=== PATIENT | female | born 1930 | race Caucasian/White ===

== ENCOUNTER 2019-02-05 03:49 | Observation (INO) | payer MEDICARE ==
[~2019-02-05] VITALS: Ht 167.6 cm; Wt 105.0 kg
[2019-02-05] VITALS (11 sets, daily range): BP systolic 117–173; BP diastolic 58–82
[~2019-02-05 03:49] MED LIST: AMIO400T8 PO; AMIT25TA PO; AMLO10TA8 PO; ATOR20TA PO; CARV6.25 PO; DICL50TA2 PO; FURO40TA4 PO; GLIP10TA24 PO; INSU100I13 SQ; INSU100V11 SUBCUT; LEVO150T6 PO; LEVO175T5 PO; LOSA50TA14 PO; METF10007 PO; NATEGLINIDE; OXYBUTYIN; PRIM50TA PO; RIVA10TA PO; RIVA20TA PO; SIMV40TA20 PO; WARF4TAB65 PO
--- NOTE | 2019-02-05 03:55 | NUR ---
Triage Brought to ER room 2 by ambulance. Patient got up in the night to go to the restroom and got very dizzy which caused nausea. Dizziness has been going on since yesterday. Monitors applied. EKG done and presented to the doctor. Doctor in to see patient. Will f/u with further orders. lw
[2019-02-05] MEDS ORDERED: ANTIVERT PO STA (04:06)
--- NOTE | 2019-02-05 04:08 | PCM.EKG ---
[facility] Test Date: 2019-02-05 Test Time: 03:59:45 Pat Name: SHOAIB JONES Department: Room: 328 Gender: F Secondary Set Up Man: EDISON : 1930 Requested By: SHIVANI DWYER Order Number: [id number] Reading MD: Shivani DWYER Measurements Intervals [place] Rate: 73 P: OK: 224 QRS: -27 QRSD: 100 T: 54 QT: 439 QTc: 484 Interpretive Statements Atrial-paced complexes Prolonged OK interval Borderline left axis deviation Low voltage, precordial leads Probable anteroseptal infarct, old Compared to ECG 05/22/2018 12:34:50 First degree AV block now present Low QRS voltage now present Myocardial infarct finding still present Electronically Signed On 02-05-2019 16:28:28 AMUSEMENT EQUIPMENT OPERATOR by Shivani DWYER Please click the below link to view image of tracing.
--- NOTE | 2019-02-05 04:11 | ER.PDOC ---
General Chief Complaint: Dizziness Stated Complaint: N/V,DIZZY Time seen by MD: 04:09 Source: patient Exam Limitations: no limitations History of Present Illness Initial Comments Nausea and dizziness since last night. No chest pain or SOB. Per daughter, patient is altered. Severity: moderate Associated Symptoms: sense of movement Decreased Ability to Stand: weak Usually: walks w/o assistance Worsened By: movement of head Allergies: Coded Allergies: Sulfa (Sulfonamide Antibiotics) (Verified Allergy, Severe, 04/22/16) codeine (Verified Allergy, Severe, 04/22/16) Home Meds Reported Medications Warfarin Sodium (WARFARIN SODIUM) 4 Mg Tablet, PO HS, TABLET 04/22/16 Glipizide (GLIPIZIDE ER) 10 Mg Tab.er.24, 1 TAB PO DAILY, #90 TAB 1 Refill 01/21/16 Primidone (PRIMIDONE) 50 Mg Tablet, 50 MG PO HS, TABLET 01/21/16 Atorvastatin 20MG (LIPITOR 20MG) 20 Mg Tablet, 1 TAB PO HS, #90 TAB 1 Refill 01/21/16 Losartan Potassium (LOSARTAN POTASSIUM) 50 Mg Tablet, 1 TAB PO DAILY, #30 TAB 5 Refills 01/21/16 Amitriptyline Hcl (AMITRIPTYLINE HCL) 25 Mg Tablet, 1 TAB PO HS, #30 TAB 3 Refills 01/21/16 Levothyroxine Sodium (LEVOTHYROXINE SODIUM) 175 Mcg Tablet, 1 TAB PO DAILY, #30 TAB 5 Refills 01/21/16 Furosemide (FUROSEMIDE) 40 Mg Tablet, 1 TAB PO EVERY OTHER DAY, #30 TAB 5 Refills 03/18/15 Amiodarone Hcl (AMIODARONE HCL) 400 Mg Tablet, 200 MG PO DAILY, TABLET 10/14/14 Past Medical History Medical History: arrhythmia, congestive heart failure, diabetes, hypertension Surgical History: other Social History Alcohol Use: none Drug Use: none Review of Systems Constitutional: no symptoms reported Ears: dizziness Throat: no symptoms reported Respiratory: no symptoms reported Cardiovascular: no symptoms reported Gastrointestinal: no symptoms reported Musculoskeletal: no symptoms reported All Other Systems: Reviewed and Negative Physical Exam General Appearance: alert, no distress Neck: supple Respiratory: no resp distress, breath sounds nml CVS: reg rate & rhythm, heart sounds.nml Abdomen: non-tender, no organomegaly, no distention Skin: color nml, no rash, warm/dry Extremities: non-tender, nml ROM, no pedal edema Neuro/Psych: nml orientation, nml speech/cognition, nml mood/affect Cerebellar: nml as tested Sensorimotor: nml motor, nml sensation Results/Orders Results/Orders Orders - SHIVANI DWYER MD Cbc With Auto Diff (02/05/19 04:06) Comprehensive Metabolic Panel (02/05/19 04:06) Creatine Kinase (02/05/19 04:06) Creatine Kinase Mb (02/05/19 04:06) Troponin I (02/05/19 04:06) Probnp B-Type Drop Pit Worker (02/05/19 04:06) PT (02/05/19 04:06) Partial Thromboplastin Time. (02/05/19 04:06) Xr Chest 1v (02/05/19 04:06) Ekg-Routine (02/05/19 04:06) Ct Head Wo Contrast (02/05/19 04:06) Urinalysis (02/05/19 04:06) Meclizine Hcl (Antivert) (02/05/19 04:06) Meclizine Hcl (Antivert) (02/05/19 04:17) Ondansetron Hcl/Pf (Zofran 4 Mg/2 Ml Via (02/05/19 04:32) Urine Culture (02/05/19 04:10) Vital Signs Date Time Temp Pulse Resp B/P (MAP) Pulse Ox O2 Delivery O2 Flow Rate FiO2 02/05/19 05:51 72 16 167/63 (97) 97 Room Air 02/05/19 04:40 70 20 173/82 (112) 97 Room Air 02/05/19 04:01 97.7 70 14 147/76 (99) 97 Room Air 02/05/19 04:00 97.7 70 14 02/05/19 03:54 97.7 73 16 97 Administered Medications Medications (Trade) Dose Ordered Sig/Matti Route PRN Reason Start Time Stop Time Status Last Admin Dose Admin Meclizine HCl (Antivert) 25 mg STAT STAT PO 02/05/19 04:06 02/05/19 04:08 DC 02/05/19 04:18 25 MG Laboratory Tests Test 02/05/19 04:10 02/05/19 04:15 Urine Collection Type VOID Urine Color YELLOW (YELLOW) Urine Appearance CLOUDY (CLEAR) H Urine Bilirubin NEGATIVE MG/DL (NEGATIVE) Urine Ketones NEGATIVE (NEGATIVE) Urine Specific [place] 1.015 (1.005-1.035) Urine pH 6 (5.0-6.0) Urine Protein NEGATIVE (NEGATIVE) Urine Urobilinogen NORMAL (NEGATIVE) Urine Nitrate POSITIVE (NEGATIVE) Urine Leukocyte Esterase 500/uL 2+ (NEGATIVE) Urine Blood NEGATIVE (NEGATIVE) Urine RBC 2-5 RBC/HPF (NONE SEEN) Urine WBC TNTC WBC/HPF (0-2) H Urine Squamous Epithelial Cells FEW #/HPF (FEW) Urine Bacteria MANY (NONE SEEN) H Urine Glucose 1000 (NEGATIVE) H White Blood Count 8.8 10^3/uL (4.5-11.0) Red Blood Count 4.98 10^6/uL (4.00-5.20) Hemoglobin 14.5 g/dL (12.0-15.0) Hematocrit 43.9 % (36.0-46.0) Mean Corpuscular Volume 88.2 fL (78-100) Mean Corpuscular Hemoglobin 29.1 pg (26-34) Mean Corpuscular Hemoglobin Concent 33.0 g/dL (33-37) Red Cell Distribution Width 13.1 % (11.5-14.5) Platelet Count 225 10^3/uL (150-400) Mean Platelet Volume 10.2 fL (7.8-11.0) Neutrophils (%) (Auto) 62.3 % (41.0-85.0) Lymphocytes (%) (Auto) 22.4 % (24.0-44.0) L Monocytes (%) (Auto) 9.7 % (5.0-12.0) Neutrophils # (Auto) 5.4 10^3/uL (1.8-7.7) Lymphocytes # (Auto) 2.0 10^3/uL (1.0-4.8) Monocytes # (Auto) 0.9 10^3/uL (0.3-0.8) H Absolute Immature Granulocyte (auto 0.02 10^3 u/L (0-2) Immature Granulocytes % 0.20 % (0.00-0.50) Eosinophils % 4.3 % (0.0-5.0) Basophils % 1.1 % (0.0-0.2) H Basophils # 0.1 10^3/uL (0.0-0.1) Eosinophil Count 0.4 10^3/uL (0.0-0.2) H Prothrombin Time 10.4 SEC (9.4-11.5) Prothrombin Time INR (Non-Therap) 1.0 Activated Partial Thromboplast Time 20.3 SEC (24.67-30.72) Sodium Level 138 mmol/L (132-145) Potassium Level 4.3 mmol/L (3.6-5.2) Chloride Level 103.0 mmol/L (96-109) Carbon Dioxide Level 25.5 mmol/L (20.0-32) Anion Gap 13.8 Blood Urea Nitrogen 27 mg/dL (7-18) H Creatinine 1.70 mg/dL (0.59-1.40) H Estimated GFR () 34.4 (>/=60) BUN/Creatinine Ratio 15.0 Glucose Level 297 mg/dL (70-110) H Calcium Level 9.1 mg/dL (8.4-10.5) Total Bilirubin 0.3 mg/dL (0.2-1.0) Aspartate Amino Transferase (AST) 12 U/L (0-35) Alanine Aminotransferase (ALT) 22 U/L (12-78) Alkaline Phosphatase 103 U/L (50-136) Total Creatine Kinase 46 U/L (26-192) Creatine Kinase MB 1.0 ng/mL (0.5-3.6) Troponin I < 0.02 ng/mL (0.00-0.05) Pro-B-Type Natriuretic Peptide 181 pg/mL (0-450) Total Protein 6.6 g/dL (6.4-8.2) Albumin 3.5 g/dL (3.4-5.0) Globulin 3.1 EKG/XRAY/CT/US EKG Comments: Paced rythm XRAY: chest (No active disease) CT Comments: No acute intracranial abnormality Course Duration or Total Time Spent w: 20 Vitals & review Data Vital Sign - Last 24 Hours 02/05/19 02/05/19 02/05/19 02/05/19 03:54 04:00 04:01 04:40 Temp 97.7 97.7 97.7 Pulse 73 70 70 70 Resp 16 14 14 20 B/P (MAP) 147/76 (99) 173/82 (112) Pulse Ox 97 97 97 O2 Delivery Room Air Room Air 02/05/19 05:51 Pulse 72 Resp 16 B/P (MAP) 167/63 (97) Pulse Ox 97 O2 Delivery Room Air Laboratory Tests Test 02/05/19 04:10 02/05/19 04:15 Urine Collection Type VOID Urine Color YELLOW Urine Appearance CLOUDY Urine Bilirubin NEGATIVE MG/DL Urine Ketones NEGATIVE Urine Specific [place] 1.015 Urine pH 6 Urine Protein NEGATIVE Urine Urobilinogen NORMAL Urine Nitrate POSITIVE Urine Leukocyte Esterase 500/uL 2+ Urine Blood NEGATIVE Urine RBC 2-5 RBC/HPF Urine WBC TNTC WBC/HPF Urine Squamous Epithelial Cells FEW #/HPF Urine Bacteria MANY Urine Glucose 1000 White Blood Count 8.8 10^3/uL Red Blood Count 4.98 10^6/uL Hemoglobin 14.5 g/dL Hematocrit 43.9 % Mean Corpuscular Volume 88.2 fL Mean Corpuscular Hemoglobin 29.1 pg Mean Corpuscular Hemoglobin Concent 33.0 g/dL Red Cell Distribution Width 13.1 % Platelet Count 225 10^3/uL Mean Platelet Volume 10.2 fL Neutrophils (%) (Auto) 62.3 % Lymphocytes (%) (Auto) 22.4 % Monocytes (%) (Auto) 9.7 % Neutrophils # (Auto) 5.4 10^3/uL Lymphocytes # (Auto) 2.0 10^3/uL Monocytes # (Auto) 0.9 10^3/uL Absolute Immature Granulocyte (auto 0.02 10^3 u/L Immature Granulocytes % 0.20 % Eosinophils % 4.3 % Basophils % 1.1 % Basophils # 0.1 10^3/uL Eosinophil Count 0.4 10^3/uL Prothrombin Time 10.4 SEC Prothrombin Time INR (Non-Therap) 1.0 Activated Partial Thromboplast Time 20.3 SEC Sodium Level 138 mmol/L Potassium Level 4.3 mmol/L Chloride Level 103.0 mmol/L Carbon Dioxide Level 25.5 mmol/L Anion Gap 13.8 Blood Urea Nitrogen 27 mg/dL Creatinine 1.70 mg/dL Estimated GFR () 34.4 BUN/Creatinine Ratio 15.0 Glucose Level 297 mg/dL Calcium Level 9.1 mg/dL Total Bilirubin 0.3 mg/dL Aspartate Amino Transf (AST/SGOT) 12 U/L Alanine Aminotransferase (ALT/SGPT) 22 U/L Alkaline Phosphatase 103 U/L Total Creatine Kinase 46 U/L Creatine Kinase MB 1.0 ng/mL Troponin I < 0.02 ng/mL Pro-B-Type Natriuretic Peptide 181 pg/mL Total Protein 6.6 g/dL Albumin 3.5 g/dL Globulin 3.1 Sepsis Infection Criteria Pres: None O2 Sat by Pulse Oximetry: 97 Departure Time of Disposition: 06:04 Disposition: 09 ADMITTED INPATIENT Impression: Primary Impression: AMS (altered mental status) Additional Impressions: LANRE (acute kidney injury) Dehydration UTI (urinary tract infection) Dizziness Condition: Stable Referrals: BRAULIO DODSON MD (PCP) PRIMARY CARE PROVIDER Duration or Time Spent with Pa: 60 mins Problem Qualifiers Primary Impression: AMS (altered mental status) Altered mental status type: unspecified Qualified Codes: R41.82 - Altered mental status, unspecified Additional Impressions: UTI (urinary tract infection) Urinary tract infection type: site unspecified Hematuria presence: with hematuria Qualified Codes: N39.0 - Urinary tract infection, site not specif ied; R31.9 - Hematuria, unspecified SHIVANI DWYER MD Feb 05, 2019 04:11
[2019-02-05] MEDS ORDERED: ANTIVERT ONE (04:17)
--- NOTE | 2019-02-05 04:20 | NUR ---
lab Lab here for blood draw. Radiology here for x-ray. OOB into for trip to bathroom. U/A obtained. Meds given as per doctor order. lw
[2019-02-05 04:23] LABS: BILIRUBIN,URINE NEGATIVE (NEGATIVE); UROBILINOGEN,URINE NORMAL (NEGATIVE)
[2019-02-05 04:24] LABS: BASOPHIL # 0.1 10^3/uL (0.0-0.1); BASOPHIL % 1.1 % (0.0-0.2); EOSINOPHIL # 0.4 10^3/uL (0.0-0.2); EOSINOPHIL % 4.3 % (0.0-5.0); LYMPHOCYTES % 22.4 % (24.0-44.0); MEAN CORP HGB 29.1 pg (26-34); MONOCYTES # 0.9 10^3/uL (0.3-0.8); MONOCYTES % 9.7 % (5.0-12.0); NEUTROPHIL # 5.4 10^3/uL (1.8-7.7); NEUTROPHILS % 62.3 % (41.0-85.0); PLATELET COUNT 225 10^3/uL (150-400); RED CELL DISTRIBUTION WIDTH 13.1 % (11.5-14.5)
[2019-02-05] MEDS ORDERED: ZOFRAN 4 MG/2 ML VIAL ONE (04:32)
[2019-02-05 04:36] LABS: APPEARANCE,URINE CLOUDY (CLEAR); UA COLOR YELLOW (YELLOW)
--- NOTE | 2019-02-05 04:40 | NUR ---
CT Patient returned to room from CT scan. lw
--- NOTE | 2019-02-05 04:44 | DIREP ---
PROCEDURE:CT HEAD WITHOUT CONTRAST TECHNIQUE:Axial cuts were obtained through the head, without intravenous contrast material. The images were viewed at brain and bone settings. COMPARISON:[facility], CT, CT HEAD BRAIN W/O CONTRAST, 05/22/2018, 12:32 PM. INDICATIONS:Dizziness FINDINGS: VENTRICLES:Normal. CEREBRUM:Normal. No hemorrhage, infarct or mass lesion. CEREBELLUM:Normal. BRAINSTEM:Normal. SKULL:Normal. SINUSES:Normal. OTHER:Arterial calcifications. CONCLUSION:No acute intracranial abnormalities. No change from previous study. Dictated by: Ethan Gifford M.D. on 02/05/2019 at 04:42 AM
--- NOTE | 2019-02-05 04:47 | DIREP ---
PROCEDURE:CHEST 1 VIEW COMPARISON:[facility], CR, XRAY CHEST SINGLE VW, 05/22/2018, 12:12 PM. INDICATIONS:Dizziness FINDINGS: LUNGS/PLEURA:No significant pulmonary parenchymal abnormalities. No effusions. VASCULATURE:Normal. Unremarkable pulmonary vasculature. CARDIAC:Left-sided dual-chamber pacemaker in place. MEDIASTINUM:Calcification in the aortic arch. BONES:Anchors in the right humeral head. OTHER:Negative. CONCLUSION:No acute cardiopulmonary abnormalities. No change from previous study. Dictated by: Ethan Gifford M.D. on 02/05/2019 at 04:45 AM
[2019-02-05 05:36] LABS: ALANINE AMINOTRANSFERASE(ML) 22 U/L (12-78); ALKALINE PHOSPHATASE 103 U/L (50-136); ASPARTATE AMINO TRANSFERASE 12 U/L (0-35); CALCIUM 9.1 mg/dL (8.4-10.5); CARBON DIOXIDE 25.5 mmol/L (20.0-32); GLUCOSE 297 mg/dL (70-110)
[2019-02-05] MEDS ORDERED: ROCEPHIN 1 GM in NS 100ML 100 ML IV STA (06:08)
[2019-02-05] MEDS ORDERED: ZOFRAN 4 MG/2 ML VIAL IV STA (06:08)
[2019-02-05] MEDS ORDERED: HNS 1000ML/KCL 20MEQ 1,000 ML IV STA (06:08)
[2019-02-05] MEDS ORDERED: HNS 1000ML/KCL 20MEQ 1,000 ML ONE (06:14)
[2019-02-05] MEDS ORDERED: NS 100ML 100 ML IV ONE (06:15)
[2019-02-05] MEDS ORDERED: ROCEPHIN ONE (06:15)
--- NOTE | 2019-02-05 06:58 | NUR ---
Pt on unit Pt arrived on unit. Care of pt assumed. Oriented pt to room. Drink and food provided. Call light within reach.
--- NOTE | 2019-02-05 09:38 | PCM.HP ---
HISTORY & PHYSICAL HISTORY & PHYSICAL DATE OF ADMISSION: 02/05/19 CHIEF COMPLAINT: Dizziness HISTORY OF PRESENT ILLNESS: 88 y/o CF pmhx of A-fib on xarelto, TIA, CAD, SSS-pacemaker, DM, and neuropathy, presnets to the the ED with cc of dizziness. Patient states for the past few days she has not been feeling "too well", she complains of minimal dizziness with movement. She states it was worse last night when she tried to ambulate to the bathroom. She got up and when she stood to walk she felt extremely dizzy, she called her daughter to help her to the bathroom. She describes being extremely weak and unable to move and this is when the paramedics were called. She admits to have taken too much of her Neuropathy pill earlier because of severe neuropathic pain. She is unsure of the pill, but she is noted to be on amitriptyline. She denies CP, palpitations, headache, slurred speech, facial droop, unilateral weakness. She denies fever, chills, burning with urination, abdominal pain, constipation. She notes swelling in her BL lower ext when she is not as active. but prominent lately. on arrival to the ED, cre elevated, +UA. ALLERGIES: Sulfa, Codiene CURRENT MEDICATIONS: Amiodarone Amitriptyline Lipitor Glipizide Lasix Losartan Levothyroxine PAST MEDICAL HISTORY: A-fib on xarelto CAD HTN TIA SSS- Pacemaker Hypothyroidism- Diabetes Neuropathy SOCIAL HISTORY: No smoking -quit>25 years ago No etoh no illicits FAMILY HISTORY: Non contributory REVIEW OF SYSTEMS: 10 reviewed and otherwise neg. except as noted above PHYSICAL EXAMINATION: GENERAL: obese, NAD, continues to have minimal dizziness. VITAL SIGNS: First Vital Signs Date Time Temp Pulse Resp B/P (MAP) Pulse Ox O2 Delivery O2 Flow Rate FiO2 02/05/19 03:54 97.7 73 16 97 02/05/19 04:01 147/76 (99) Room Air Last Vital Signs Date Time Temp Pulse Resp B/P (MAP) Pulse Ox O2 Delivery O2 Flow Rate FiO2 02/05/19 07:30 98.6 71 18 145/76 (99) 94 Room Air HEENT: NC/AT, dry mucosa NECK: No JVD LUNGS: +NEEMA HEART: S1, S2 ABDOMEN: Soft nt, nd, very minimal tenderness with deep palpation in suprapubic EXTREMITIES: 1+ bl edema NEUROLOGIC: no gross focal deficits. LABORATORY DATA: Laboratory Tests 02/05/19 04:10: Urine Collection Type VOID, Urine Color YELLOW, Urine Appearance CLOUDYH, Urine Bilirubin NEGATIVE, Urine Ketones NEGATIVE, Urine Specific [place] 1.015, Urine pH 6, Urine Protein NEGATIVE, Urine Urobilinogen NORMAL, Urine Nitrate POSITIVE, Urine Leukocyte Esterase 500/uL 2+, Urine Blood NEGATIVE, Urine RBC 2-5, Urine WBC TNTCH, Urine Squamous Epithelial Cells FEW, Urine Bacteria MANYH, Urine Glucose 1000H 02/05/19 04:15: White Blood Count 8.8, Red Blood Count 4.98, Hemoglobin 14.5, Hematocrit 43.9, Mean Corpuscular Volume 88.2, Mean Corpuscular Hemoglobin 29.1, Mean Corpuscular Hemoglobin Concent 33.0, Red Cell Distribution Width 13.1, Platelet Count 225, Mean Platelet Volume 10.2, Neutrophils (%) (Auto) 62.3, Lymphocytes (%) (Auto) 22.4L, Monocytes (%) (Auto) 9.7, Neutrophils # (Auto) 5.4, Lymphocytes # (Auto) 2.0, Monocytes # (Auto) 0.9H, Absolute Immature Granulocyte (auto 0.02, Immature Granulocytes % 0.20, Eosinophils % 4.3, Basophils % 1.1H, Basophils # 0.1, Blood Morphology Comment NORMAL MORPHOLOGY, Eosinophil Count 0.4H, Prothrombin Time 10.4, Prothrombin Time INR (Non-Therap) 1.0, Activated Partial Thromboplast Time 20.3L, Sodium Level 138, Potassium Level 4.3, Chloride Level 103.0, Carbon Dioxide Level 25.5, Anion Gap 13.8, Blood Urea Nitrogen 27H, Creatinine 1.70H, Estimated GFR () 34.4, BUN/Creatinine Ratio 15.0, Glucose Level 297H, Calcium Level 9.1, Total Bilirubin 0.3, Aspartate Amino Transf (AST/SGOT) 12, Alanine Aminotransferase (ALT/SGPT) 22, Alkaline Phosphatase 103, Total Creatine Kinase 46, Creatine Kinase MB 1.0, Troponin I < 0.02, Pro-B-Type Natriuretic Peptide 181, Total Protein 6.6, Albumin 3.5, Globulin 3.1 IMPRESSION & CARE PLAN 1. Dizziness, Generalized weakness Ddx: Orthostatic Hypotn, Medication use (?Amitryptiline + Lasix) in the setting of LANRE, UTI UTI -continue IV antibiotics with ceftriaxone -continue IV hydration Orthostatic Hypotension -check ortho vitals -continue IV hydration ?Extra medication use for neuropathy, ?Amitryptilin -monitor QRS on EKG and tele -continue IV hydration 2. LANRE -on ?CKD -continue IV hydration, monitor BCP 3. Bilateral lower ext edema, suspect dependant -check d-dimer, determine need for doppler -continue IV hydration and monitor -echo 4. Chronic condition DM-sliding scale insulin DL-hold off on meds HTN-hold off on losartan and lasix 5. DVT SCD JALEN العراقي MD Feb 05, 2019 09:38
[2019-02-05] MEDS ORDERED: NS 1000ML 1,000 ML IV ONE (10:00)
[2019-02-05] MEDS ORDERED: ROCEPHIN 1 GM in NS 100ML 100 ML IV SCH (10:00)
[2019-02-05] MEDS ORDERED: DEXTROSE 50%-WATER SYRINGE IV PRN ×2 (10:00)
[2019-02-05] MEDS: HUMULIN R SQ SCH ×3 (11:30→21:24)
[2019-02-05] MEDS: HNS 1000ML/KCL 20MEQ 1,000 ML IV SCH (19:28)
[2019-02-05] MEDS ORDERED: ELAVIL PO SCH (21:00)
[2019-02-05] MEDS ORDERED: MYSOLINE PO SCH (21:00)
[2019-02-06 00:05] VITALS: BP 117/54
[2019-02-06] MEDS: HNS 1000ML/KCL 20MEQ 1,000 ML IV SCH (04:28)
[2019-02-06 05:37] VITALS: BP 126/62
[2019-02-06] MEDS ORDERED: ROCEPHIN 1 GM in NS 100ML 100 ML IV SCH (06:00)
[2019-02-06] MEDS ORDERED: SYNTHROID PO SCH (06:30)
[2019-02-06 06:55] VITALS: BP 135/65
[2019-02-06] MEDS: HUMULIN R SQ SCH (07:30)
[2019-02-06 08:19] LABS: CALCIUM 8.2 mg/dL (8.4-10.5); CARBON DIOXIDE 26.4 mmol/L (20.0-32)
[2019-02-06] MEDS ORDERED: CORDARONE PO SCH (09:00)
--- NOTE | 2019-02-06 10:30 | NUR ---
DISCHARGE PLAN CASE MANAGEMENT VISITED WITH PATIENT CONCERNING DISCHARGE PLAN AND NEEDS. LIVES AT HOME ALONE. INDEPENDENT OF ADLS. HAS DME INCLUDING A WALKER, SHOWER CHAIR, AND GLUCOMETER. CM EDUCATED PATIENT ON HOME HEALTH, SNF/SBU, AND OUTPATIENT SERVICES. DENIES NEED FOR SERVICES AND HOME OXYGEN AT THIS TIME. REFUSAL LETTER PRESENTED, SIGNED, AND PLACED ON THE CHART. PCP IS DR. DODSON. PATIENT HAS FINANCIAL ABILITY TO PAY FOR MEDICATIONS UPON DISCHARGE IF NEEDED. DISCHARGE GOAL IS TO DISCHARGE HOME AND CONTINUE SELF CARE. CM WILL CONTINUE TO FOLLOW FOR DISCHARGE NEEDS. Addendum: 02/06/19 at 1141 by Marla Chapa RN-HALEY & BUSINESS EDUCATION TEACHER CM SPOKE TO CÉSAR ACEVEDO AT DR. DODSON'S OFFICE TO NOTIFY THEM OF PATIENT BEING ADMITTED TO THE HOSPITAL.
[2019-02-06] MEDS ORDERED: CEPH-350 PO (11:16)
--- NOTE | 2019-02-06 11:21 | PRM.DC ---
Subjective Subjective Date of Discharge: Feb 06, 2019 Time of Request to Discharge: 11:16 Subjective Pt was admitted for dizziness, and found to have a UTI. Dizziness has resolved, and patient doing well and ready for discharge with oral Abx at home Laboratory Tests Test 02/05/19 04:10 02/05/19 04:15 02/05/19 09:55 02/05/19 21:05 Urine Collection Type VOID Urine Color YELLOW (YELLOW) Urine Appearance CLOUDY (CLEAR) Urine Bilirubin NEGATIVE MG/DL (NEGATIVE) Urine Ketones NEGATIVE (NEGATIVE) Urine Specific [place] 1.015 (1.005-1.035) Urine pH 6 (5.0-6.0) Urine Protein NEGATIVE (NEGATIVE) Urine Urobilinogen NORMAL (NEGATIVE) Urine Nitrate POSITIVE (NEGATIVE) Urine Leukocyte Esterase 500/uL 2+ (NEGATIVE) Urine Blood NEGATIVE (NEGATIVE) Urine RBC 2-5 RBC/HPF (NONE SEEN) Urine WBC TNTC WBC/HPF (0-2) Urine Squamous Epithelial Cells FEW #/HPF (FEW) Urine Bacteria MANY (NONE SEEN) Urine Glucose 1000 (NEGATIVE) White Blood Count 8.8 10^3/uL (4.5-11.0) Red Blood Count 4.98 10^6/uL (4.00-5.20) Hemoglobin 14.5 g/dL (12.0-15.0) Hematocrit 43.9 % (36.0-46.0) Mean Corpuscular Volume 88.2 fL (78-100) Mean Corpuscular Hemoglobin 29.1 pg (26-34) Mean Corpuscular Hemoglobin Concent 33.0 g/dL (33-37) Red Cell Distribution Width 13.1 % (11.5-14.5) Platelet Count 225 10^3/uL (150-400) Mean Platelet Volume 10.2 fL (7.8-11.0) Neutrophils (%) (Auto) 62.3 % (41.0-85.0) Lymphocytes (%) (Auto) 22.4 % (24.0-44.0) Monocytes (%) (Auto) 9.7 % (5.0-12.0) Neutrophils # (Auto) 5.4 10^3/uL (1.8-7.7) Lymphocytes # (Auto) 2.0 10^3/uL (1.0-4.8) Monocytes # (Auto) 0.9 10^3/uL (0.3-0.8) Absolute Immature Granulocyte (auto 0.02 10^3 u/L (0-2) Immature Granulocytes % 0.20 % (0.00-0.50) Eosinophils % 4.3 % (0.0-5.0) Basophils % 1.1 % (0.0-0.2) Basophils # 0.1 10^3/uL (0.0-0.1) Blood Morphology Comment NORMAL MORPHOLOGY Eosinophil Count 0.4 10^3/uL (0.0-0.2) Prothrombin Time 10.4 SEC (9.4-11.5) Prothrombin Time INR (Non-Therap) 1.0 Activated Partial Thromboplast Time 20.3 SEC (24.67-30.72) Sodium Level 138 mmol/L (132-145) Potassium Level 4.3 mmol/L (3.6-5.2) Chloride Level 103.0 mmol/L (96-109) Carbon Dioxide Level 25.5 mmol/L (20.0-32) Anion Gap 13.8 Blood Urea Nitrogen 27 mg/dL (7-18) Creatinine 1.70 mg/dL (0.59-1.40) Estimated GFR () 34.4 (>/=60) BUN/Creatinine Ratio 15.0 Glucose Level 297 mg/dL (70-110) Calcium Level 9.1 mg/dL (8.4-10.5) Total Bilirubin 0.3 mg/dL (0.2-1.0) Aspartate Amino Transf (AST/SGOT) 12 U/L (0-35) Alanine Aminotransferase (ALT/SGPT) 22 U/L (12-78) Alkaline Phosphatase 103 U/L (50-136) Total Creatine Kinase 46 U/L (26-192) Creatine Kinase MB 1.0 ng/mL (0.5-3.6) Troponin I < 0.02 ng/mL (0.00-0.05) Pro-B-Type Natriuretic Peptide 181 pg/mL (0-450) Total Protein 6.6 g/dL (6.4-8.2) Albumin 3.5 g/dL (3.4-5.0) Globulin 3.1 D-Dimer 0.46 mg/L (0.19-0.49) C-Reactive Protein 0.36 mg/dL (0.00-5.00) Thyroid Stimulating Hormone (TSH) 4.366 mIU/mL (0.358-3.740) Bedside Glucose 190 (70 - 110) Test 02/06/19 06:32 02/06/19 07:46 Bedside Glucose 179 (70 - 110) Sodium Level 140 mmol/L (132-145) Potassium Level 5.0 mmol/L (3.6-5.2) Chloride Level 106.0 mmol/L (96-109) Carbon Dioxide Level 26.4 mmol/L (20.0-32) Glucose Level 190 mg/dL (70-110) Blood Urea Nitrogen 20 mg/dL (7-18) Creatinine 1.46 mg/dL (0.59-1.40) Calcium Level 8.2 mg/dL (8.4-10.5) Anion Gap 12.6 Estimated GFR () 41.0 (>/=60) BUN/Creatinine Ratio 13.0 Patient History: Alzheimer's disease G8 BROTHER, , Age:81 Asthma 32 MOTHER, , Age:81 19 CHILD Cerebrovascular disorder G8 BROTHER Chronic obstructive pulmonary disease 32 MOTHER, , Age:81 19 CHILD 19 CHILD, , Age:62 Diabetes mellitus 19 CHILD (HAD DM PRIOR TO LOSSING WT) Hypertension 19 CHILD 19 CHILD 19 CHILD, , Age:62 No known health problems 33 FATHER, , Age:78 No Family History of: Congestive heart failure Diabetes insipidus Parkinson's disease Exam Vital Signs Vital Signs Date Time Temp Pulse Resp B/P (MAP) Pulse Ox O2 Delivery O2 Flow Rate FiO2 02/06/19 08:10 69 135/65 02/06/19 07:13 Room Air 02/06/19 06:55 98.3 14 90 General Appearance: Alert, Oriented X3 HEENT: Atraumatic, PERRLA Respiratory: Clear to auscultation Cardiovascular: Regular rate Abdominal: Normal bowel sounds Extremities: No clubbing, No cyanosis Skin: No rash Neuro: Normal gait Psych/Mental Status: Mental status NL VTE VTE Risk Total Score: 3 VTE Risk Score VTE Risk: Score 0-1 = Low Risk (Aggressive mobilization; early ambulation; no VTE prophylaxis required) Score 2: Moderate Risk (Intermittent/Pneumatic Compression Device OR Lovenox/Heparin/Coumadin) Score 3-4: High Risk (Intermittent/Pneumatic Compression Device AND Lovenox/Heparin/Coumadin) Score > or =5: Highest Risk (Intermittent/Pneumatic Compression Device AND Lovenox/Heparin/Coumadin) Objective Vitals and I/O Vital Sign - Last 24 Hours 02/05/19 02/05/19 02/05/19 02/06/19 16:45 19:08 19:15 00:05 Temp 97.9 97.7 97.9 Pulse 89 70 70 Resp 18 18 18 B/P (MAP) 120/73 (89) 117/58 (77) 117/54 (75) Pulse Ox 96 96 94 O2 Delivery Room Air Room Air Room Air 02/06/19 02/06/19 02/06/19 02/06/19 05:37 06:55 07:13 08:10 Temp 97.9 98.3 Pulse 69 69 69 Resp 18 14 B/P (MAP) 126/62 (83) 135/65 (88) 135/65 Pulse Ox 93 90 O2 Delivery Room Air Room Air Room Air Intake and Output 02/05/19 02/05/19 02/06/19 15:00 23:00 07:00 Intake Total 100 ml 220 ml Output Total 400 ml 1500 ml 800 ml Balance -400 ml -1400 ml -580 ml All Results(Lab/Rad) Laboratory Tests Test 02/05/19 21:05 02/06/19 06:32 02/06/19 07:46 Bedside Glucose 190 179 Sodium Level 140 mmol/L Potassium Level 5.0 mmol/L Chloride Level 106.0 mmol/L Carbon Dioxide Level 26.4 mmol/L Glucose Level 190 mg/dL Blood Urea Nitrogen 20 mg/dL Creatinine 1.46 mg/dL Calcium Level 8.2 mg/dL Anion Gap 12.6 Estimated GFR () 41.0 BUN/Creatinine Ratio 13.0 Current Medications Medications (Trade) Dose Ordered Sig/Matti Route PRN Reason Start Time Stop Time Status Last Admin Dose Admin Meclizine HCl (Antivert) 25 mg STAT STAT PO 02/05/19 04:06 02/05/19 04:08 DC 02/05/19 04:18 Meclizine HCl (Antivert) 25 mg STK-MED ONCE .ROUTE 02/05/19 04:17 02/05/19 04:18 DC Ondansetron HCl (Zofran 4 Mg/2 ml Vial) 4 mg STK-MED ONCE .ROUTE 02/05/19 04:32 02/05/19 04:33 DC Potassium Chloride/Sodium Chloride 1,000 ml @ 100 mls/hr Q10H STAT IV 02/05/19 06:08 02/05/19 16:07 DC 02/05/19 06:17 Ceftriaxone Sodium 1 gm/ Sodium Chloride 100 ml @ 100 mls/hr STAT STAT IV 02/05/19 06:08 02/05/19 07:07 DC 02/05/19 06:18 Ondansetron HCl (Zofran 4 Mg/2 ml Vial) 4 mg Q4H STAT IV 02/05/19 06:08 02/05/19 06:13 DC 02/05/19 06:14 Potassium Chloride/Sodium Chloride 1,000 ml @ ud STK-MED ONCE .ROUTE 02/05/19 06:14 02/05/19 06:16 DC Ceftriaxone Sodium (Rocephin) 1 gm STK-MED ONCE .ROUTE 02/05/19 06:15 02/05/19 06:16 DC Sodium Chloride 100 ml @ ud STK-MED ONCE IV 02/05/19 06:15 02/05/19 06:16 DC Ceftriaxone Sodium 1 gm/ Sodium Chloride 100 ml @ 100 mls/hr Q24HRS IV 02/05/19 10:00 02/05/19 10:11 DC Sodium Chloride 1,000 ml @ 100 mls/hr OT ONCE IV 02/05/19 10:00 02/05/19 19:59 DC 02/05/19 10:00 Dextrose (Dextrose 50%-Water Syringe) 25 ml STAT PRN IV HYPOGLYCEMIA 02/05/19 10:00 03/07/19 09:59 Insulin Human Regular (Humulin R) Give 30 minutes before meal ACHS SQ 02/05/19 11:30 03/07/19 11:29 02/06/19 07:30 Dextrose (Dextrose 50%-Water Syringe) 25 ml STAT PRN IV HYPOGLYCEMIA 02/05/19 10:00 03/07/19 09:59 Amitriptyline HCl (Elavil) 25 mg HS PO 02/05/19 21:00 03/07/19 20:59 02/05/19 21:23 Levothyroxine Sodium (Synthroid) 175 mcg ACB PO 02/06/19 06:30 03/08/19 06:29 02/06/19 06:18 Primidone (Mysoline) 50 mg HS PO 02/05/19 21:00 03/07/19 20:59 02/05/19 21:23 Amiodarone HCl (Cordarone) 200 mg DAILY PO 02/06/19 09:00 03/08/19 08:59 02/06/19 08:10 Ceftriaxone Sodium 1 gm/ Sodium Chloride 100 ml @ 100 mls/hr Q24HRS IV 02/06/19 06:00 03/08/19 05:59 02/06/19 06:18 Potassium Chloride/Sodium Chloride 1,000 ml @ 100 mls/hr Q10H IV 02/05/19 19:30 03/07/19 19:29 02/06/19 04:28 Medication Reconciliation Scheduled Amiodarone Hcl (Amiodarone Hcl), 200 MG PO DAILY, (Reported) Amitriptyline Hcl (Amitriptyline Hcl), 1 TAB PO HS, (Reported) Atorvastatin 20MG (Lipitor 20MG), 1 TAB PO HS, (Reported) Furosemide (Furosemide), 1 TAB PO EVERY OTHER DAY, (Reported) Glipizide (Glipizide Er), 1 TAB PO DAILY, (Reported) Levothyroxine Sodium (Levothyroxine Sodium), 1 TAB PO DAILY, (Reported) Losartan Potassium (Losartan Potassium), 1 TAB PO DAILY, (Reported) Primidone (Primidone), 50 MG PO HS, (Reported) Discontinued Medications Warfarin Sodium (Warfarin Sodium), Unknown Dose PO HS, (Reported) Discontinued Reason: No Longer Taking Plan Assessment DM II Hypothyroid CAD Hx A fib SSS - pacemaker Plan UTI - will take Keflex 500 mg po bid x 7 days MEAGAN MONTAÑO DO Feb 06, 2019 11:21
[2019-02-06 11:59] VITALS: BP 135/65
--- NOTE | 2019-03-16 15:25 | PCM.ECHO ---
APPROVED REPORT EXAM: Comprehensive 2D, Doppler, and color-flow Echocardiogram. Patient Location: IN-PATIENT Indications Congestive Heart Failure Lower extremities edema, eval for CHF 2D Dimensions LVOT Diameter 2.22 (1.8-2.4cm) LVEF(%) 56.02 (>50%) M-Mode Dimensions RVDd 2.80 (2.1-3.2cm)Left Atrium(MM) 4.00 (2.5-4.0cm) IVSd 1.40 (0.7-1.1cm)Aortic Root 2.85 (2.2-3.7cm) LVDd 4.20 (4.0-5.6cm)Aortic Cusp Exc 1.55 (1.5-2.0cm) PWd 0.85 (0.7-1.1cm)IVSs 1.85 cm FS (%) 44.40 %LVDs 2.30 (2.0-3.8cm) ESV(Teich) 18.80 mlPWs 1.60 cm LVEF(%) 76.09 (>50%) Volumes Biplane 2D LV VolumesBiplane 2D LA Volumes LVEDv A4C86.59 mLLA ESV Index LVESv A4C38.08 mL Aortic Valve AoV Peak Dejon. 0.95 m/s AoV VTI 22.85 cm AO Peak GR. 3.85 mmHg AO Mean GR. 2.25 mmHg LVOT VTI 26.44 cm LVOT Peak Dejon. 0.67 m/s DONNELL(VTI)/BSA 4.49 cm2/m2 DONNELL (VTI) 4.49 cm2 Mitral Valve MV E Velocity 1.05m/sMR Peak Gr. 22.25mmHg MV A Velocity 1.30m/s TDI Lateral E' P. V0.05m/sMedial E' P. V0.11m/s Pulmonary Valve PV Peak Velocity0.70m/sPV Peak Grad.2.20mmHg RVOT VTI16.38cm Tricuspid Valve TR P. Velocity1.50m/sRAP [id number] TR Peak Gr.9.42jmUrQVDH06.54mmHg LEFT VENTRICLE The left ventricle is normal size. The left ventricular systolic function is normal. The left ventricular ejection fraction is within the normal range. There is normal left ventricular wall thickness. There is normal LV segmental wall motion. There is no ventricular septal defect visualized. LVEF is 65-70%. RIGHT VENTRICLE The right ventricle is normal size. The right ventricular systolic function is normal. There is normal right ventricular wall thickness. ATRIA The left atrium size is normal. The right atrium size is normal. The interatrial septum is intact with no evidence for an atrial septal defect. AORTIC VALVE The aortic valve is normal in structure. There is no aortic valvular stenosis. No aortic regurgitation is present. MITRAL VALVE The mitral valve is normal in structure. There is no mitral valve stenosis. Mild mitral regurgitation. There is no evidence of mitral valve vegetations. TRICUSPID VALVE The tricuspid valve is normal in structure. There is no tricuspid valve stenosis. Mild tricuspid regurgitation. PULMONIC VALVE The pulmonary valve is normal in structure. There is no pulmonic valvular stenosis. There is no pulmonic valvular regurgitation. GREAT VESSELS The aortic root is normal in size. Ascending aorta is not well visualized. The IVC is normal in size and collapses >50% with inspiration. PERICARDIUM There is no pericardial effusion. There is no pleural effusion. <Conclusion> The left ventricular systolic function is normal. LVEF is 65-70%. Mild mitral regurgitation. Mild tricuspid regurgitation. Electronically signed by : MARCOS JACQUES. 02/06/2019 12:41:17
== END 2019-02-06 12:00 | disposition home or self-care (01) ==
LOC: ER 03:49 → EDBD 03:49 → MS 06:08 → INTOOBSV 06:08 → UNDOADMOB 06:08 → MS 06:08
PROVIDERS: ADMIT Internal Medicine; ATTEND Internal Medicine
DX: I95.1 Orthostatic hypotension (principal); R42 Dizziness and giddiness; N39.0 Urinary tract infection, site not specified; E03.9 Hypothyroidism, unspecified; E11.40 Type 2 diabetes mellitus with diabetic neuropathy, unspecified; E86.0 Dehydration; I11.0 Hypertensive heart disease with heart failure; I50.9 Heart failure, unspecified; I25.10 Atherosclerotic heart disease of native coronary artery without angina pectoris; I48.91 Unspecified atrial fibrillation; I49.5 Sick sinus syndrome; Z95.0 Presence of cardiac pacemaker; Z86.73 Personal history of transient ischemic attack (TIA), and cerebral infarction without residual deficits; Z79.01 Long term (current) use of anticoagulants; Z79.899 Other long term (current) drug therapy
CPT/HCPCS: 36415 ×2; 70450; 71045; 80048; 80053; 81000; 82550; 82553; 82948 ×2; 83880; 84443; 84484; 85025; 85379; 85610; 85730; 86140; 87040 ×2; 87077; 87086; 87186; 93005; 93306; 96361 ×2; 96365; 96366; 96372 ×2; 96375; 99284; G0378 ×2; J0696 ×4; J2405; J7030 ×3; J7050 ×4; 99285; J8597

== ENCOUNTER → 2020-04-17 | Outpatient (CLI) | payer MEDICARE ==
[~2020-04-17] MED LIST changes: +AMLO-170 PO; -AMLO10TA8 PO; +CEPH-350 PO
--- NOTE | 2020-04-17 10:30 | DIREP ---
PROCEDURE: CT SPINE LUMBAR W/O TECHNIQUE:Axial cuts were obtained through the lumbar spine. The images were viewed at bone settings. COMPARISON:None. INDICATIONS:M54.16 RADICULOPATHY LUMBAR REGION FINDINGS: ALIGNMENT:Mild levocurvature of the lumbar spine. Slight straightening of the normal lumbar lordosis. Trace anterolisthesis of L3 on L4. Trace retrolisthesis of L5 on S1. VERTEBRAE:Vertebral body heights are preserved. Mild ventral osteophytosis throughout the lumbar spine. DISC SPACE:Significant disc space narrowing and a vacuum phenomenon at L5-S1. Mild disc space narrowing and a vacuum phenomenon is seen at L2-L3. PARASPINAL AREA:Degenerative change of the sacroiliac joints. Significant calcification of the abdominal aorta. Colonic diverticulosis without CT evidence of acute diverticulitis. Mild nonspecific perinephric stranding. Left hip arthroplasty. OTHER:No additional findings. LUMBAR DISC LEVELS T12-L1:Mild disc bulge. No significant canal stenosis. No significant neural foraminal narrowing. L1-L2:Mild facet joint hypertrophy and mild disc bulge. Mild effacement of the thecal sac, anteriorly. No significant neural foraminal narrowing. L2-L3:Large disc bulge and facet hypertrophy resulting in moderate canal stenosis. There is mild bilateral neural foraminal narrowing. L3-L4:Pseudo bulge, right greater than left facet joint hypertrophy, and disc bulge resulting in moderate to severe canal stenosis. There is mild to moderate right greater than left neural foraminal narrowing. L4-L5:Disc bulge, facet hypertrophy, and ligamentum flavum thickening resulting in moderate to severe canal stenosis. There is mild left and moderate right neural foraminal narrowing. L5-S1:Pseudo bulge and facet joint hypertrophy. Mild effacement of thecal sac without significant canal narrowing. Moderate left and mild right neural foraminal narrowing. CONCLUSION: 1. Multilevel degenerative changes lumbar spine, as detailed above. Findings are most prominent at the L3-L4 and L4-5 levels with there is moderate to severe canal stenosis. Moderate canal stenosis is seen at the L2-L3 level. Dictated by: Sheldon Marks MD on 04/17/2020 at 10:24 AM
== END | disposition home or self-care (01) ==
LOC: RAD 09:09
PROVIDERS: ATTEND Orthopaedic Surgery
DX: M47.26 Other spondylosis with radiculopathy, lumbar region (principal); M48.061 Spinal stenosis, lumbar region without neurogenic claudication
CPT/HCPCS: 72131